=== PATIENT | female | born 1980 ===

== ENCOUNTER 2018-04-19 13:49 | Inpatient (IN) | payer OTHER ==
[~2018-04-19] VITALS: Ht 157.5 cm; Wt 85.3 kg
== END 2018-05-18 14:01 | DRG 775 ==
LOC: LDR 05-15 14:15 → OB/GYN 05-16 01:26 → LDR 05-16 08:46 → OB/GYN 05-16 21:39
PROC: 10E0XZZ Delivery of Products of Conception, External Approach (ICD-10-PCS; principal; 2018-05-16)
PROC: 0KQM0ZZ Repair Perineum Muscle, Open Approach (ICD-10-PCS; 2018-05-16)
PROC: 3E033VJ Introduction of Other Hormone into Peripheral Vein, Percutaneous Approach (ICD-10-PCS; 2018-05-16)
PROC: 4A1HXCZ Monitoring of Products of Conception, Cardiac Rate, External Approach (ICD-10-PCS; 2018-05-16)
DX: O48.0 Post-term pregnancy (principal); O70.1 Second degree perineal laceration during delivery; Z3A.40 40 weeks gestation of pregnancy; Z37.0 Single live birth

== ENCOUNTER 2018-04-30 11:27 | Outpatient (CLI) | payer OTHER | END 2018-04-30 12:48 | disposition home or self-care (01) | LOC: NST 11:27 | DX: Z34.83 Encounter for supervision of other normal pregnancy, third trimester (principal) ==